=== PATIENT | female | born 1990 | race Caucasian/White ===

== ENCOUNTER → 2017-12-08 08:35 | Outpatient (CLI) | payer BC, SELFPAY ==
--- NOTE | 2017-12-08 | DI.US.S_ITS ---
PROCEDURE: US RENAL COMPLETE INDICATIONS: NEPHROLITHIASIS TECHNIQUE: Real-time scanning was performed of the kidneys and bladder, with image documentation. COMPARISON: [facility], [facility], 01/22/2017, 9:26. [facility], OB REEVALUATION, 12/12/2016, 8:37. [facility], [facility], 04/07/2017, 12:22. FINDINGS: Kidneys: Kidneys are normal in size. Right kidney measures 14.1 cm long; left kidney measures 12.8 cm long. Right renal cortical thickness is 1.6 cm; left renal cortical thickness is 1.5 cm. Renal cortical echotexture is normal. No hydronephrosis. There is a nonobstructing left-sided kidney stone is seen within the mid kidney that measures up to 9 mm. No suspicious solid mass lesions. Bladder: Pre-void bladder volume is 430 mL. Post-void residual is 25 mL. Pre-void images demonstrate no intraluminal masses or stones. On pre-void images, both ureteral jets are noted with color Doppler interrogation. (Of note, ureteral jets may not be detectable in up to 25% of cases due to insufficient differences in specific gravity between ureteral and bladder urine). Miscellaneous: No free pelvic fluid. IMPRESSION: Nonobstructing left-sided kidney stone, measuring 9 mm, which is no significantly changed from prior. Small postvoid residual (25 cc). Dictated by: Jozef Reynolds M.D. on 12/08/2017 at 8:55 Approved by: Jozef Reynolds M.D. on 12/08/2017 at 8:58
== END ==
PROVIDERS: Family Provider Family Medicine; PCP Family Medicine; Visit Provider Family Medicine
DX: N20.0 Calculus of kidney (principal)
CPT/HCPCS: 76770

== ENCOUNTER 2018-05-27 22:33 | Emergency (ER) | payer BC, SELFPAY ==
--- NOTE | 2018-05-27 22:48 | ED_ITS ---
HPI - General Adult General Chief complaint: Urogenital-Female Stated complaint: KIDNEY PAIN Time Seen by Provider: 05/27/18 22:47 Source: patient Mode of arrival: ambulatory Limitations: no limitations History of Present Illness HPI narrative: otherwise healthy 27-year-old female who was diagnosed with bilateral renal stones during an ultrasound during her . She delivered without any complications. Did have a follow-up with the urologist who ordered a CT scan which confirmed the bilateral renal stones. Neither of these studies were available for my evaluation. She states she has never passed a kidney stone before. She states that earlier today she started having sudden onset of left-sided flank pain and dysuria. She states that she felt like she had a urinary tract infection. Had urgency and frequency. She states that the pain became fairly intense. Took some ibuprofen. Had an episode of diarrhea and then afterwards felt much better. Has not had a return of the pain. No fevers. Dysuria has also seemed to improve. Related Data Home Medications Medication Instructions Recorded Confirmed norethindrone (contraceptive) 0.35 mg PO #0 05/10/17 [Deblitane] Previous Rx's Medication Instructions Recorded sulfamethoxazole-trimethoprim 1 tab PO BID #20 tab 05/10/17 Allergies Allergy/AdvReac Type Severity Reaction Status Date / Time hydrocodone [HYDROCODONE] Allergy Mild NAUSEA/VOMI Verified 05/27/18 22:49 TING Review of Systems Constitutional Denies fever(s) and Denies headache(s) ENT Ears, Nose, Mouth, and Throat: Denies headache(s) Cardiovascular Denies chest pain and Denies dyspnea Respiratory Denies dyspnea Gastrointestinal Gastrointestinal: Denies abdominal pain, Denies cramping, Reports diarrhea, Reports nausea and Denies vomiting Genitourinary Denies hematuria, Reports urinary frequency, Reports dysuria, Denies flank pain , Denies urinary incontinence, Reports urinary hesitancy, Reports urinary urgency and Denies vaginal discharge Musculoskeletal Denies myalgias and Denies arthralgias Integumentary/Breasts Denies rash Neurologic Denies headache(s) Hematologic/Lymphatic Comments: Not on anticoagulation PFSH Medical History Healthy adult (Acute) Surgical History No pertinent past surgical history (Acute) Social History Smoking Status: Never smoker Exam Initial Vital Signs Initial Vital Signs: Vital Signs Temperature 98.8 F 05/27/18 22:49 Pulse Rate 95 H 05/27/18 22:49 Respiratory Rate 15 05/27/18 22:49 Blood Pressure 127/85 05/27/18 22:49 Pulse Oximetry 97 05/27/18 22:49 Const General: cooperative, healthy appearing, comfortable, well developed, well groomed and No acute distress Orientation: alert, awake and oriented x3 HENMT Head: normal to inspection and normocephalic Resp Effort & Inspection: normal respiratory effort Cardio Rate: regular rate Skin Rashes: no rashes Neuro General: alert, awake and oriented x3 Cognition: normal cognition Extrem General: normal to inspection Other: no gross deformities Psych Appearance: grossly normal and well kempt Course Vital Signs - 8 hr 05/27/18 22:49 Temperature 98.8 F Pulse Rate 95 H Respiratory Rate 15 Blood Pressure 127/85 Pulse Oximetry 97 Medical Decision Making Lab Data Point of Care Testing Test Results Negative Urine Dip Bedside Urine Glucose Negative Bedside Urine Bilirubin - Negative Bedside Urine Ketone - Negative Urine Specific [place] 1.010 Bedside Urine Occult Blood +++ Bedside Urine pH 6.0 Bedside Urine Protein - Negative Bedside Urine Urobilinogen - Negative Bedside Urine Nitrite - Negative Bedside Urine Leukocytes - Negative Esterase Point of care testing: Point of Care Testing Test Results Negative Urine Dip Bedside Urine Glucose Negative Bedside Urine Bilirubin - Negative Bedside Urine Ketone - Negative Urine Specific [place] 1.010 Bedside Urine Occult Blood +++ Bedside Urine pH 6.0 Bedside Urine Protein - Negative Bedside Urine Urobilinogen - Negative Bedside Urine Nitrite - Negative Bedside Urine Leukocytes - Negative Esterase MDM Narrative Medical decision making narrative: patient with known kidney stones. test was negative. Urine shows no signs of infection. She did not require any pain medication here in the emergency department. I did inform her that it was most likely that she had a kidney stone that she has passed. Informed her that she would be fairly sore afterwards. Did inform her that she needed to contact her urologist to discuss this. She was given return precautions. Will hold on a CT scan of blood work today. She expressed understanding and agreement this plan. Discharge Plan Departure Patient Disposition: Home Clinical Impression: Renal colic Discharge Date/Time: 05/27/18 23:16 Interventions: ED Discharge Assessment Last Done: 05/27/18 23:16 Instructions: Kidney Stones -- Adult Activity Restrictions/Additional Instructions: there were no signs of an infection today on her urinalysis. I do suspect that you had a kidney stone but then passed it. I would recommend that you contact your urologist. Return to the emergency department for any fevers, inability to urinate, pain that is not controlled with your home pain regimen or any other concerning symptoms Prescriptions: No Action norethindrone (contraceptive) [Deblitane] 0.35 MG tablet 0.35 mg PO Qty: 0 RF: 0 sulfamethoxazole-trimethoprim 800 MG/160 MG tablet 1 tab PO BID Qty: 20 RF: 0
[2018-05-27 22:49] VITALS: BP 127/85; PULSE 95; RESP 15; TEMP 37.1; O2SAT 97; BMI 24.8
== END 2018-05-27 23:16 | disposition home or self-care (01) ==
PROVIDERS: Emergency Provider Emergency Medicine; Family Provider Family Medicine; PCP Family Medicine
DX: N23 Unspecified renal colic (principal)
CPT/HCPCS: 81003; 81025; 99282; 99283

== ENCOUNTER → 2019-05-18 07:12 | Outpatient (CLI) | payer BC, SELFPAY ==
--- NOTE | 2019-05-18 | DI.US.S_ITS ---
PROCEDURE: US OB <= 14 WEEKS FETUS INDICATIONS: DATES OUTSIDE/PRIOR DATING DATA: Last menstrual period (LMP): 03/25/19. LMP-based estimated date of delivery (PATRICIA): 12/30/19. First dating scan (date and location): 05/18/19. Estimated date of delivery (PATRICIA) from first dating scan: 01/02/20. TECHNIQUE: Real-time scanning was performed of the fetus and maternal pelvic organs, with image documentation. Endovaginal scanning was also performed to better visualize the fetus and maternal ovaries. COMPARISON: None. FINDINGS: Embryo: [place]-rump length measures 12 mm corresponding to 7 weeks 2 days. Heart rate measures 147 beats per minute. Measurement variability in dating: +/- 4 weeks by LMP, +/- 7 days by mean sac diameter (use before 6 weeks gestation if crown-rump length not able to be measured), +/- 5 days by crown-rump length (up to 8 weeks 6 days gestation), +/- 7 days by crown-rump length (up to 13 weeks 6 days gestation). Maternal organs: Probable complex right corpus luteal cyst measuring 19 mm.. Limited images through the kidneys demonstrate no hydronephrosis. IMPRESSION: 1. 7 week 2 day single living IUP. 2. Probable complex right corpus luteal cyst. Recommend short-term followup pelvic ultrasound to assess for resolution. Dictated by: Roney BARILLAS Interpreted: Blanche Connolly MD on 05/18/2019 at 16:55 Approved by: Blanche Connolly MD, PhD on 05/18/2019 at 17:36
== END ==
PROVIDERS: Family Provider Family Medicine; PCP Family Medicine; Visit Provider Family Medicine
DX: Z36.87 Encounter for antenatal screening for uncertain dates (principal); Z3A.01 Less than 8 weeks gestation of pregnancy
CPT/HCPCS: 76801; 76817

== ENCOUNTER → 2019-08-12 09:10 | Outpatient (CLI) | payer BC, SELFPAY ==
--- NOTE | 2019-08-12 | DI.US.S_ITS ---
PROCEDURE: US OB >= 14 WEEKS FETUS INDICATIONS: 20 WEEK ANATOMICAL SURVEY OUTSIDE/PRIOR DATING DATA: Last menstrual period (LMP): 03/25/19. LMP-based estimated date of delivery (PATRICIA): 12/30/19. First dating scan (date and location): 05/18/19. Estimated date of delivery (PATRICIA) from first dating scan: 01/02/20. TECHNIQUE: Real-time scanning was performed of the fetus, with image documentation and biometric measurements. COMPARISON: [facility], OB <= 14 WEEKS FETUS, 05/18/2019, 7:25. FINDINGS: General: A single living intrauterine gestation is present. Presentation: Vertex. Placenta: Placental position is posterior, without previa. Amniotic fluid index: 1020 cm, normal range is 5-24 cm. heart rate: 135 beats per minute. Maternal cervical canal: 3.9 cm long. Normal lower limit is 2.5 cm. biometrics: Biparietal diameter: 20 weeks 1 day Head circumference: 20 weeks 3 days Abdominal circumference: 20 weeks 2 days Femur length: 19 weeks 2 days Estimated gestational age from initial scan: 19 weeks 4 days Composite gestational age from present scan: 20 weeks Estimated weight and percentile: 317 g; 62nd percentile Measurement variability for biometric dating: +/- 7 days from 14 weeks to 15 weeks 6 days gestation, +/- 10 days from 16 weeks to 21 weeks 6 days gestation, +/- 2 weeks from 22 weeks to 27 weeks 6 days gestation, +/- 3 weeks for 28 weeks gestation or later. weight reference: 4500 g or EFW >90/95% is considered macrosomia or large for gestational age. EFW <10% is small for gestational age. EFW 5% or less is considered intra-uterine growth restriction. Anatomic survey: Neuro: Ventricles are non-dilated at less than 10 mm. Cisterna magna is normal at 3-11 mm. Cerebellum is normal in size and morphology. Nuchal skin fold: Normal at less than 6 mm between 14-21 weeks gestational age. Face: Nose and lips, facial profile are normal. Spine: No evidence for spina bifida. Heart: 4-chambered heart is present, with normal ventricular outflow tracts. Diaphragm: Diaphragm is intact. Stomach: Left-sided stomach is present. Kidneys: No hydronephrosis. Normal is less than 5 mm in 2nd trimester, less than 7 mm in 3rd trimester. Cord: 2-vessel cord has orthotopic insertion. Bladder: Normal in size. Extremities: All 4 extremities identified. IMPRESSION: 1. Single living IUP redemonstrated and interval growth is normal. 2. Normal anatomic survey. 3. Two-vessel cord noted. Dictated by: Roney Holland [facility] Interpreted: Daryn Armas MD on 08/12/2019 at 10:40 Approved by: Daryn Armas M.D. on 08/12/2019 at 13:58
== END ==
PROVIDERS: Family Provider Family Medicine; PCP Family Medicine; Referring Provider Family Medicine; Visit Provider Family Medicine
DX: Z36.89 Encounter for other specified antenatal screening (principal); Z3A.20 20 weeks gestation of pregnancy
CPT/HCPCS: 76811

== ENCOUNTER → 2019-11-16 07:52 | Outpatient (CLI) | payer BC, SELFPAY ==
--- NOTE | 2019-11-16 | DI.US.S_ITS ---
PROCEDURE: US OB FOLLOW UP INDICATIONS: 2 VESSEL CORD OUTSIDE/PRIOR DATING DATA: Last menstrual period (LMP): 03/25/19. LMP-based estimated date of delivery (PATRICIA): 12/30/19. First dating scan (date and location): 04/2619. Estimated date of delivery (PATRICIA) from first dating scan: 01/02/20. TECHNIQUE: Real-time scanning was performed of the fetus, with image documentation and biometric measurements. Endovaginal scanning: Not performed COMPARISON: [facility], OB >= 14 WEEKS FETUS, 08/12/2019, 9:18. FINDINGS: General: A single living intrauterine gestation is present. Presentation: Vertex. Placenta: Placental position is left and fundal, without previa. Amniotic fluid index: 12.7 cm, normal range is 5-24 cm. heart rate: 144 beats per minute. Maternal cervical canal: 3.9 cm long. Normal lower limit is 2.5 cm. biometrics: Biparietal diameter: 8.6 cm, 34 weeks, 4 days Head circumference: 30.6 cm, 34 weeks, one day Abdominal circumference: 30.7 cm, 34 weeks, 5 days Femur length: 6.2 cm, 32 weeks, zero days Estimated gestational age from initial scan: 33 weeks, 2 days. Composite gestational age from present scan: 33 weeks, 6 days Estimated weight and percentile: 2302 g, 61st percentile Measurement variability for biometric dating: +/- 7 days from 14 weeks to 15 weeks 6 days gestation, +/- 10 days from 16 weeks to 21 weeks 6 days gestation, +/- 2 weeks from 22 weeks to 27 weeks 6 days gestation, +/- 3 weeks for 28 weeks gestation or later. weight reference: 4500 g or EFW >90/95% is considered macrosomia or large for gestational age. EFW <10% is small for gestational age. EFW 5% or less is considered intra-uterine growth restriction. IMPRESSION: 1. Single live intrauterine with appropriate growth since the prior study. Dictated by: Indira Pfeiffer M.D. on 11/16/2019 at 9:13 Approved by: Indira Pfeiffer M.D. on 11/16/2019 at 9:16
== END ==
PROVIDERS: Family Provider Family Medicine; PCP Family Medicine; Referring Provider Family Medicine; Visit Provider Family Medicine
DX: Z36.2 Encounter for other antenatal screening follow-up (principal); Z3A.33 33 weeks gestation of pregnancy
CPT/HCPCS: 76816

== ENCOUNTER 2019-11-16 08:36 | Outpatient (CLI) | payer BC, SELFPAY | END 2019-11-16 09:28 | disposition home or self-care (01) | LOC: OB 11-17 12:29 | PROVIDERS: Family Provider Family Medicine; PCP Family Medicine; Referring Provider Family Medicine; Visit Provider Family Medicine | DX: O35.0XX0 Maternal care for (suspected) central nervous system malformation in fetus, not applicable or unspecified (principal); Z3A.33 33 weeks gestation of pregnancy | CPT/HCPCS: 59025; 76816; G0378; G0379 ==

== ENCOUNTER 2019-11-26 08:22 | Outpatient (CLI) | payer BC, SELFPAY | END 2019-11-26 09:00 | disposition home or self-care (01) | LOC: LABOR 09:00 → OB 11-30 07:38 | PROVIDERS: Family Provider Family Medicine; PCP Family Medicine; Referring Provider Family Medicine; Visit Provider Family Medicine | DX: Z34.83 Encounter for supervision of other normal pregnancy, third trimester (principal); Z3A.35 35 weeks gestation of pregnancy | CPT/HCPCS: 59025; G0378; G0379 ==

== ENCOUNTER 2019-12-02 08:23 | Outpatient (CLI) | payer BC, SELFPAY | END 2019-12-02 10:00 | disposition home or self-care (01) | LOC: LABOR 09:58 → OB 14:43 | PROVIDERS: Family Provider Family Medicine; PCP Family Medicine; Referring Provider Family Medicine; Visit Provider Family Medicine | DX: Z34.83 Encounter for supervision of other normal pregnancy, third trimester (principal); Z3A.36 36 weeks gestation of pregnancy | CPT/HCPCS: 59025; 87081; G0378; G0379 ==

== ENCOUNTER → 2019-12-09 07:37 | Outpatient (CLI) | payer BC, SELFPAY ==
--- NOTE | 2019-12-09 | DI.US.S_ITS ---
PROCEDURE: US OB LIMITED INDICATIONS: 2 VESSEL CORD OUTSIDE/PRIOR DATING DATA: Last menstrual period (LMP): 04/21/19. LMP-based estimated date of delivery (PATRICIA): 12/30/19. First dating scan (date and location): 05/18/19. Estimated date of delivery (PATRICIA) from first dating scan: 01/02/20. TECHNIQUE: Real-time scanning was performed of the fetus, with image documentation and biometric measurements. Endovaginal scanning: No COMPARISON: [facility] OB FOLLOW UP, 11/16/2019, 8:17. [facility] OB >= 14 WEEKS FETUS, 08/12/2019, 9:18. [facility] OB <= 14 WEEKS FETUS, 05/18/2019, 7:25. FINDINGS: General: A single living intrauterine gestation is present. Presentation: Vertex. Placenta: Placental position is posterior fundal, without previa. Amniotic fluid index: 14 cm, normal range is 5-24 cm. heart rate: 132 beats per minute. Maternal cervical canal: 3.9 cm long. Normal lower limit is 2.5 cm. biometrics: Biparietal diameter: 37 weeks 3 days Head circumference: 36 weeks 3 days Abdominal circumference: 35 weeks 1 day Femur length: 35 weeks 3 days Estimated gestational age from initial scan: 36 weeks 4 days Composite gestational age from present scan: 36 weeks 1 day Estimated weight and percentile: 2717 g; 20 percentile Measurement variability for biometric dating: +/- 7 days from 14 weeks to 15 weeks 6 days gestation, +/- 10 days from 16 weeks to 21 weeks 6 days gestation, +/- 2 weeks from 22 weeks to 27 weeks 6 days gestation, +/- 3 weeks for 28 weeks gestation or later. weight reference: 4500 g or EFW >90/95% is considered macrosomia or large for gestational age. EFW <10% is small for gestational age. EFW 5% or less is considered intra-uterine growth restriction. Other: 2 vessel cord. IMPRESSION: 1. Single living IUP redemonstrated and interval growth is normal. 2. Two-vessel cord again noted. Dictated by: Roney Holland [facility] Interpreted: Blanche Connolly MD on 12/09/2019 at 8:56 Approved by: Blanche Connolly MD, PhD on 12/09/2019 at 13:38
== END ==
PROVIDERS: Family Provider Family Medicine; PCP Family Medicine; Referring Provider Family Medicine; Visit Provider Family Medicine
DX: Z36.89 Encounter for other specified antenatal screening (principal); Z3A.36 36 weeks gestation of pregnancy
CPT/HCPCS: 76815

== ENCOUNTER 2019-12-09 07:53 | Outpatient (CLI) | payer BC, SELFPAY | END 2019-12-09 09:00 | disposition home or self-care (01) | LOC: LABOR 08:54 → OB 11:45 | PROVIDERS: Family Provider Family Medicine; PCP Family Medicine; Referring Provider Family Medicine; Visit Provider Family Medicine | DX: Z34.83 Encounter for supervision of other normal pregnancy, third trimester (principal); Z3A.37 37 weeks gestation of pregnancy; Z36.89 Encounter for other specified antenatal screening | CPT/HCPCS: 59025; 76815; G0378; G0379 ==

== ENCOUNTER 2019-12-16 08:35 | Outpatient (CLI) | payer BC, SELFPAY | END 2019-12-16 09:10 | disposition home or self-care (01) | LOC: OB 12-17 10:53 | PROVIDERS: Family Provider Family Medicine; PCP Family Medicine; Referring Provider Family Medicine; Visit Provider Family Medicine | DX: O35.8XX0 Maternal care for other (suspected) fetal abnormality and damage, not applicable or unspecified (principal); Z3A.38 38 weeks gestation of pregnancy | CPT/HCPCS: 59025; G0378; G0379 ==

== ENCOUNTER → 2019-12-20 10:46 | Outpatient (CLI) | payer BC, SELFPAY ==
[2019-12-21 08:39] LABS: COVID19 Sendout Not Detected (Not Detect)
== END ==
PROVIDERS: Family Provider Family Medicine; PCP Family Medicine; Visit Provider Physician Assistant
DX: Z01.812 Encounter for preprocedural laboratory examination (principal)
CPT/HCPCS: 87635

== ENCOUNTER 2019-12-22 07:39 | Inpatient (IN) | payer BC, SELFPAY ==
[2019-12-22] MEDS: LACTATED RINGERS 1,000 ML 100 ML IV ×3 (07:05→09:36)
[2019-12-22 07:46] VITALS: BP 128/76
[2019-12-22 07:58] LABS: Add Manual Diff / Slide Review NO; Basophils Absolute Auto 100 /uL (0-100); Basophils Percent Auto 0.8 % (0-2); Eosinophils Absolute Auto 100 /uL (0-450); Eosinophils Percent Auto 0.6 % (2-4); Hematocrit 35.5 % (36-46); Hemoglobin 12.2 g/dL (12.0-16.0); Lymphocytes Absolute Auto 2100 /uL (1100-4500); Lymphocytes Percent Auto 17.3 % (25-40); Mean Corpuscular HGB Conc 34.5 % (30-36); Mean Corpuscular Hemoglobin 32.1 PG (26-34); Mean Corpuscular Volume 93.2 fL (80-100); Monocytes Absolute Auto 1000 /uL (0-900); Monocytes Percent Auto 8.3 % (3-14); Neutrophils Absolute Auto 9000 /uL (1500-7000); Platelet Count 250 X10^3/uL (150-400); Red Blood Cell Count 3.81 X10^6/uL (4.0-5.2); Red Cell Distribution Width 12.8 % (11.6-14.8); White Blood Cell Count 12.4 X10^3/uL (4.5-11.0)
--- NOTE | 2019-12-22 08:37 | P.HPOB_ITS ---
OB HPI Date/Time Date of admission: 12/22/19 Date Patient Seen: 12/22/19 Time Patient Seen: 08:37 History of Present Condition Chief complaint: 268[address] : 3 Para: 1 Estimated Date of Delivery: 12/30/19 Estimated Gestational Age (weeks): 39 Narrative: Malissa Doss is a 29 year old female with previous keith nahomy-section who is here for repeat section. No complications during . Should good care. Will establish dates no other issues or problems. Indications Operative indications ( section): previous uterine surgery Other reason(s) for admission: Discern section History of Present care: good care Dating criteria: LMP confirmed by 1st trimester US Obstetrical complications: none Preadmission Labs Blood type: A (+) positive -: Antibody screen: negative, Cystic fibrosis screen: unknown, GBS status: negative, HBsAG: negative, HIV: negative, HSV 1: negative, HSV 2: negative and RPR/VDLR: negative -: Chlamydia screen: not detected and Gonorrhea screen: not detected -: Rubella: immune and Varicella: immune HCT: 36 HCAB: negative PAP: Normal Sequential screen: Normal 1 hr GTT: 79 3 hr GTT: 1 hr Prior (ies) History: One 1 2010 9 week SAB 04/10/2017 [id number] with spinal for failure to progress female 9 lb 5 oz Evaluation Evaluation Laboratory results: Laboratory Tests 12/22/19 07:00 WBC 12.4 H RBC 3.81 L Hgb 12.2 Hct 35.5 L MCV 93.2 MCH 32.1 MCHC 34.5 RDW 12.8 Plt Count 250 Neut % (Auto) 73.0 Lymph % (Auto) 17.3 L [place] % (Auto) 8.3 Eos % (Auto) 0.6 L Baso % (Auto) 0.8 Neut # (Auto) 9000 H Lymph # (Auto) 2100 [place] # (Auto) 1000 H Eos # (Auto) 100 Baso # (Auto) 100 PFSH Medical History Healthy adult (Acute) Surgical History No pertinent past surgical history (Acute) Social History Smoking Status: Never smoker Meds Home Medications and Allergies Allergies Allergy/AdvReac Type Severity Reaction Status Date / Time hydrocodone [HYDROCODONE] Allergy Mild NAUSEA/VOMI Verified 12/20/19 16:33 TING acetaminophen [From NyQuil] AdvReac Insomnia Verified 12/22/19 07:52 dextromethorphan AdvReac Insomnia Verified 12/22/19 07:52 [From NyQuil] doxylamine [From NyQuil] AdvReac Insomnia Verified 12/22/19 07:52 pseudoephedrine [From NyQuil] AdvReac Insomnia Verified 12/22/19 07:52 Review of Systems Review of Systems ROS: Yes All systems reviewed with the patient and are negative except as otherwise documented Exam Vital Signs (past 8 hours): - 12/22/19 07:46 Blood Pressure 128/76 Narrative Exam Narrative: Alert female no acute distress mildly anxious in appearance Lungs are clear. Heart regular rate and rhythm. Abdomen is gravid estimated weight 7 and half to 8 lb. Vertex. Extremities without edema no tenderness Objective Labs Result Diagrams: 12/22/19 07:00 Labs: Laboratory Results - last 24 hr 12/22/19 07:00 WBC 12.4 H RBC 3.81 L Hgb 12.2 Hct 35.5 L MCV 93.2 MCH 32.1 MCHC 34.5 RDW 12.8 Plt Count 250 Neut % (Auto) 73.0 Lymph % (Auto) 17.3 L [place] % (Auto) 8.3 Eos % (Auto) 0.6 L Baso % (Auto) 0.8 Neut # (Auto) 9000 H Lymph # (Auto) 2100 [place] # (Auto) 1000 H Eos # (Auto) 100 Baso # (Auto) 100 Assessment and Plan Assessment and Plan Assessment and Plan narrative: Repeat section routine care
[2019-12-22] MEDS: CEFAZOLIN 2 GM/100 ML FROZ.PIGGY IV (08:45)
--- NOTE | 2019-12-22 09:18 | SUR.OPER ---
Supine on Padded OR bed, head on pillow, safety belt at thigh, arms secured on padded arm boards at <90 degrees abduction. Bump under right buttock. Legs uncrossed with pillow under knees, gel pad to heels, tape over blanket to lower legs.
--- NOTE | 2019-12-22 09:37 | SUR.OPER ---
FHR 158 TOB at 09:20 am alive boy Cord blood and placenta are given to OB nurse
[2019-12-22 10:14] VITALS: BP 116/56; PULSE 71; RESP 14; TEMP 36.7; O2SAT 98
[2019-12-22 10:19] VITALS: BP 102/45; PULSE 61; RESP 14; O2SAT 98
--- NOTE | 2019-12-22 10:23 | P.OP_ITS ---
Operative Date/Time/Diagnoses Date of procedure: 12/22/19 Time of procedure: 10:23 Pre-op diagnosis: Previous section 39 week intrauterine Post-op diagnosis: same Procedure & Clinicians Procedure: Secondary low-transverse section Same procedure as scheduled: Yes Indications: Previous section Surgeon: Jean Marie Irizarry [employer] Deputy Sheriff: Lynnette Segal Click Yes if Unassisted: No Anesthesia Type: Spinal Operative Notes Findings: Viable male infant weighing 7 lb 2 oz, normal pelvic organs. Apgars 8 and 9 Closure Type: primary Specimen(s): none sent Applied: catheter Estimated Blood Loss (mL): 300 Blood products transfused: none Procedure in detail: Patient was minute in the labor and delivery rediscuss consent. Consent previously been sign. No other complications no questions. She was taken operative theatre after anesthesia evaluated her. She was placed in a sitting position on the operative table and spinal was placed by anesthesia with excellent results. She was placed in the esquivel supine position. Prepped and draped in usual manner. Pfannenstiel incision was then done through previous scar. Down to subcutaneous tissue. Moderate amount of scar in the subcutaneous tissue required sharp dissection. The midline was then scored with Adam and fascia was identified. Fascia was elevated and extended with curved scissors. Dolly is within used to elevate the fascia. Blunt dissection off the muscle wall and sharp dissection in the midline. This was repeated inferiorly without complications. Scarring was pretty significant between muscle layer. Blunt dissection was used to established where the perineum was and then sharp dissection was used with covered finger until with allowed enough space between the muscle layer to allow fingers to be placed an point dissection was then used to extend the incision. Perineum was then identified and entered bluntly. Bladder blade was then placed. Bladder flap was then incised and developed without complications. Bladder blade was then placed into the bladder flap. Low-transverse incision was then incised until clear fluid was noted. Then extended laterally bluntly. Bladder blade was then removed. Baby was then delivered without complications on an crying after head was delivered. Bulb suctioning was then done to mouth and nasal cavity. Baby delivered easily after that period was cord was clamped period handed off to waiting respiratory therapist and. Nursery nurse. Cord bloods were obtained. Placenta was then manually removed. There was an area of clot load and was continued to be applied with was easily removed with wet lap sponge. Second what laps parents was then used to verify products of conception were removed. Cortisol uterine incision was then grasped with ring forceps along with inferior edge of the uterus. Ring forceps were then passed into the uterine cavity through the cervix and vagina. These were handed off the operative theater incision was closed with running 0 chromic locked. Second imbricating suture was then ran with 0 chromic non long period incision was dry. Irrigation was then done to abdominal contents with saline and removed. Re-evaluated wound was dry. Bladder flap was closed with 3-0 running Vicryl. Perineum was closed with running 3-0 up. Muscles were approximated with 3 2-0 Vicryl interrupted suture. Fascia was then closed with running 1 Vicryl. Irrigation was done of the subcutaneous tissue. 330 Vicryl interrupted sutures used to approximate the wound. Wound was closed with running subcuticular 4-0 Vicryl. Steri-Strips were applied. As patient did well. EBL 300 cc. Mother and were in stable condition. Complications: none Post-operative Condition: stable Disposition: Acute Care Plan for aftercare: Transfer to labor and delivery
[2019-12-22 10:24] VITALS: BP 113/74; PULSE 81; RESP 20; O2SAT 96
[2019-12-22 10:29] VITALS: BP 100/43; PULSE 59; RESP 17; O2SAT 98
[2019-12-22] MEDS: ONDANSETRON 4 MG/2 ML INJ IV ×2 (10:31→15:51)
[2019-12-22 10:59] VITALS: BP 100/43; PULSE 59; RESP 17; TEMP 36.7
[2019-12-22] MEDS: DEXTROSE 5%-LACTATED RINGERS 1,000 ML 125 ML IV ×2 (11:05→18:39)
[2019-12-22] MEDS: METOCLOPRAMIDE 10 MG/2 ML INJ IV (12:29)
[2019-12-22] MEDS: KETOROLAC 30 MG/ML VIAL IV ×2 (15:50→21:56)
[2019-12-23] MEDS: KETOROLAC 30 MG/ML VIAL IV (04:14)
[2019-12-23 07:08] LABS: Hematocrit 32.5 % (36-46); Hemoglobin 11.3 g/dL (12.0-16.0)
[2019-12-23] MEDS: DOCUSATE 250 MG CAPSULE PO (09:00)
[2019-12-23] MEDS: LANOLIN OINT 7 GM 1 APPLIC TOP (09:00)
--- NOTE | 2019-12-23 14:17 | P.DS_ITS ---
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 Routine Comment: Discharge provider: Lynnette Segal MD Summary Time Spent with Patient Time attestation: Total time spent providing and/or coordinating discharge services: 30 minutes Objective Labs Result Diagrams: 12/23/19 06:44 Labs: Laboratory Results - last 24 hr 12/23/19 06:44 Hgb 11.3 L Hct 32.5 L Exam Vital Signs (past 8 hours): Oxygen Delivery Method Room Air Narrative Exam Narrative: Alert oriented x3, vital signs stable Chest: Clear to auscultation without wheezes rhonchi or crackles Cor: Regular rate and rhythm without any murmur Abdomen: Positive bowel sounds, soft, nontender, incision clean and dry., uterus well below umbilicus Extremities: Trace nonpitting edema, DTRs intact Discharge Plan Discharge Plan Patient Disposition: Home Discharge orders & Medications Prescriptions: New ibuprofen 600 mg Tablet 600 mg PO Q6HR PRN (Reason: Fever/Mild Pain (1-3)) Qty: 60 RF: 1 docusate sodium 250 mg Capsule 250 mg PO DAILY Qty: 30 RF: 0 Follow up/Referrals: Lynnette Segal MD [Primary Care Provider] - Discharge Data Primary Care Provider: Lynnette Segal
[2019-12-23 15:24] VITALS: BP 100/43; PULSE 59; RESP 17; TEMP 36.7
== END 2019-12-23 16:30 | disposition home or self-care (01) | DRG 788 ==
PROVIDERS: Admitting Provider Family Medicine; Family Provider Family Medicine; PCP Family Medicine; Referring Provider Family Medicine; Visit Provider Family Medicine
PROC: 10D00Z1 Extraction of Products of Conception, Low, Open Approach (ICD-10-PCS; CPT 59514; principal; 2019-12-22 08:45)
DX: O34.211 Maternal care for low transverse scar from previous cesarean delivery (principal); Z3A.39 39 weeks gestation of pregnancy; Z37.0 Single live birth
CPT/HCPCS: 36415; 59050; 85014; 85018; 85025; 86850; 86900; 86901; J0690; J1885; J2274; J2405; J2590; J2765; J3010; J7121

== ENCOUNTER → 2021-08-17 09:32 | Outpatient (CLI) | payer BC, SELFPAY ==
--- NOTE | 2021-08-17 | DI.US.S_ITS ---
PROCEDURE: US PELVIC COMPLETE INDICATIONS: EXCESSIVE AND FREQUENT MENSTRUATION TECHNIQUE: Real-time scanning was performed of the pelvic organs, with image documentation. Additional endovaginal scanning was necessary due to incomplete visualization of the adnexal and endometrial structures by transabdominal scanning. COMPARISON: None. FINDINGS: Uterus: Uterus is retroverted and normal in size at 6.1 x 5.0 x 7.0 cm. The myometrium is homogeneous. The endometrium measures 5.9 mm combined thickness. Ovaries: The right ovary measures 2.2 x 1.1 x 1.0 cm. The left ovary measures 3.3 x 1.9 x 1.4 cm. The ovaries have a normal sonographic appearance. Less than 12 follicles can be seen in each ovary. No adnexal masses are seen. There is a dominant ovarian follicle in the right ovary measures 1.5 x 1.0 x 0.9 cm. A collapsing cyst is seen in left ovary measures 1.9 x 1.3 x 0.8 cm Other: No pathologic free abdominal or pelvic fluid. IMPRESSION: 1. No ultrasound findings to explain accessed and frequent menstruation. 2. A 1.9 x 1.3 x 0.8 cm collapsing cyst in the left ovary. We strive to produce accurate, complete, and clear reports of imaging services. To assist us in improving patient care, this report was composed using standard report templates and voice recognition software. Therefore, it may contain abnormal punctuation, insertions and/or omissions. Occasional wrong-word or sound-alike substitutions may occur. Though we review the report and make efforts to correct it, we do recommend that the report be read carefully in proper context to recognize any text inaccuracies. Dictated by: Bell Deutsch M.D. on 08/17/2021 at 13:39 Approved by: Bell Deutsch M.D. on 08/17/2021 at 13:43
== END ==
PROVIDERS: Family Provider Family Medicine; PCP Family Medicine; Referring Provider Family Medicine; Visit Provider Family Medicine
DX: N92.1 Excessive and frequent menstruation with irregular cycle (principal); N83.202 Unspecified ovarian cyst, left side
CPT/HCPCS: 76830; 76856

== ENCOUNTER → 2021-12-27 10:17 | Outpatient (CLI) | payer BC, SELFPAY ==
--- NOTE | 2021-12-27 | DI.US.S_ITS ---
PROCEDURE: US PELVIC COMPLETE INDICATIONS: FOLLOW UP HEMORRHAGIC CYST TECHNIQUE: Real-time scanning was performed of the pelvic organs, with image documentation. Additional endovaginal scanning was necessary due to incomplete visualization of the adnexal and endometrial structures by transabdominal scanning. COMPARISON: [facility], US, US PELVIC COMPLETE, 08/17/2021, 9:43. FINDINGS: Uterus: Uterus is retroverted and normal in size at 7.1 x 4.6 x 5.7 cm. The myometrium is homogeneous. The endometrium measures 7.1 mm combined thickness. Ovaries: The right ovary measures 4.9 x 3.1 x 4.4 cm. There is a simple right cyst which measures 4.4 x 3.2 x 3.4 cm. Previously, a simple right cyst measured 1.5 x 1.0 x 0.9 cm. The left ovary measures 2.6 x 1.4 x 1.9 cm there is a 1.9 x 1.0 x 1.0 cm left ovarian follicular cyst. The ovaries have a normal sonographic appearance. Less than 12 follicles can be seen in each ovary. No adnexal masses are seen. Other: No pathologic free abdominal or pelvic fluid. IMPRESSION: Simple right ovarian cyst which is within physiologic limits in a premenopausal female. Left follicular cyst is also noted. No sonographic abnormalities. We strive to produce accurate, complete, and clear reports of imaging services. To assist us in improving patient care, this report was composed using standard report templates and voice recognition software. Therefore, it may contain abnormal punctuation, insertions and/or omissions. Occasional wrong-word or sound-alike substitutions may occur. Though we review the report and make efforts to correct it, we do recommend that the report be read carefully in proper context to recognize any text inaccuracies. Dictated by: Patience Pinzon M.D. on 12/27/2021 at 12:11 Approved by: Patience Pinzon M.D. on 12/27/2021 at 12:13
== END ==
PROVIDERS: Family Provider Family Medicine; PCP Family Medicine; Referring Provider Family Medicine; Visit Provider Family Medicine
DX: N83.291 Other ovarian cyst, right side; N83.02 Follicular cyst of left ovary
CPT/HCPCS: 76830; 76856

== ENCOUNTER → 2022-03-01 09:05 | Outpatient (CLI) | payer BC, SELFPAY ==
--- NOTE | 2022-03-01 09:06 | DI.US.S_ITS ---
PROCEDURE: US PELVIC COMPLETE INDICATIONS: OVARIAN CYST TECHNIQUE: Real-time scanning was performed of the pelvic organs, with image documentation. Additional endovaginal scanning was necessary due to incomplete visualization of the adnexal and endometrial structures by transabdominal scanning. COMPARISON: [facility], , US PELVIC COMPLETE, 12/27/2021, 10:35. FINDINGS: Uterus: Uterus is retroverted and normal in size at 7.5 x 4.3 x 7.3 cm. The myometrium is homogeneous. The endometrium measures 7 mm combined thickness. Ovaries: The right ovary measures 2.6 x 0.9 x 1.4 cm, with a calculated ovarian volume of 1.7 cc. Previously seen simple right ovarian cyst is no longer visualized. The left ovary measures 4.7 x 3.4 x 5.0 cm, with a calculated ovarian volume of 41.5 cc. There is a new 4.5 x 3.3 x 3.8 cm simple left ovarian cyst. Otherwise, the ovaries have a normal sonographic appearance. Less than 12 follicles can be seen in each ovary. No adnexal masses are seen. Other: No pathologic free abdominal or pelvic fluid. IMPRESSION: Pelvis without acute sonographic abnormalities. Interval resolution of previously seen simple right ovarian cyst. New simple left ovarian cyst measuring 4.5 cm. We strive to produce accurate, complete, and clear reports of imaging services. To assist us in improving patient care, this report was composed using standard report templates and voice recognition software. Therefore, it may contain abnormal punctuation, insertions and/or omissions. Occasional wrong-word or sound-alike substitutions may occur. Though we review the report and make efforts to correct it, we do recommend that the report be read carefully in proper context to recognize any text inaccuracies. Dictated by: Quintin Wen M.D. on 03/01/2022 at 11:57 Approved by: Quintin Wen M.D. on 03/01/2022 at 12:00
== END ==
PROVIDERS: Family Provider Family Medicine; PCP Family Medicine; Referring Provider Obstetrics & Gynecology; Visit Provider Obstetrics & Gynecology
DX: N83.292 Other ovarian cyst, left side (principal)
CPT/HCPCS: 76830; 76856; 93976

== ENCOUNTER → 2022-04-16 10:47 | Outpatient (CLI) | payer BC, SELFPAY ==
[2022-04-16 15:39] LABS: Hemoglobin A1C% w Est Avg Glu 5.5 % (4.0-6.0)
[2022-04-16 16:29] LABS: Prolactin 7.8 ng/mL (3.0-18.6)
[2022-04-25 04:48] LABS: Percent Free Testosterone 2.64 % (0.50-2.80); Testosterone Free 0.43 ng/dL (0.10-0.85); Testosterone Total 16.3 ng/dL (10.0-55.0)
== END ==
PROVIDERS: Family Provider Family Medicine; PCP Family Medicine; Referring Provider Obstetrics & Gynecology; Visit Provider Obstetrics & Gynecology
DX: N83.202 Unspecified ovarian cyst, left side (principal); N91.5 Oligomenorrhea, unspecified; L68.9 Hypertrichosis, unspecified
CPT/HCPCS: 36415; 82627; 83036; 84146; 84402; 84403

== ENCOUNTER → 2022-04-16 16:19 | Outpatient (CLI) | payer BC, SELFPAY ==
--- NOTE | 2022-04-16 16:36 | DI.US.S_ITS ---
PROCEDURE: US PELVIC COMPLETE INDICATIONS: re-check left ovarian cyst TECHNIQUE: Real-time scanning was performed of the pelvic organs, with image documentation. Additional endovaginal scanning was necessary due to incomplete visualization of the adnexal and endometrial structures by transabdominal scanning. COMPARISON: [facility], US, US PELVIC COMPLETE, 03/01/2022, 9:13. FINDINGS: Uterus: Uterus is retroverted and normal in size at 6.6 x 3.1 x 5.1 cm. The myometrium is homogeneous. The endometrium measures 3 mm combined thickness. No focal intrauterine abnormality seen. Ovaries: The right ovary measures 2.6 x 1.0 x 0.8 cm, with a calculated ovarian volume of 1.1 cc. The left ovary measures 2.9 x 1.5 x 1.2 cm, with a calculated ovarian volume of 2.8 cc. The ovaries have a normal sonographic appearance. Less than 12 follicles can be seen in each ovary. No adnexal masses are seen. Previously seen simple left ovarian cyst is smaller but appears slightly more hyperechoic. This may represent some internal debris. No suspicious vascularity within this lesion. It measures 1.9 x 1.0 x 0.7 cm versus 4.1 x 3.5 x 3.8 cm. Other: No pathologic free abdominal or pelvic fluid. Large amount of peristalsing bowel noted in the lower abdomen/pelvis. IMPRESSION: Pelvic ultrasound without acute sonographic abnormalities. Interval decrease in size of previously described simple left ovarian cyst measuring up to 1.9 cm today versus 4.1 cm previously. There is mild interval increase in echogenicity within this cyst which may be related to presence of internal debris. No suspicious vascularity. We strive to produce accurate, complete, and clear reports of imaging services. To assist us in improving patient care, this report was composed using standard report templates and voice recognition software. Therefore, it may contain abnormal punctuation, insertions and/or omissions. Occasional wrong-word or sound-alike substitutions may occur. Though we review the report and make efforts to correct it, we do recommend that the report be read carefully in proper context to recognize any text inaccuracies. Dictated by: Quintin Wen M.D. on 04/17/2022 at 9:35 Approved by: Quintin Wen M.D. on 04/17/2022 at 9:42
== END ==
PROVIDERS: Family Provider Family Medicine; PCP Family Medicine; Referring Provider Obstetrics & Gynecology; Visit Provider Obstetrics & Gynecology
DX: N83.202 Unspecified ovarian cyst, left side (principal); N91.5 Oligomenorrhea, unspecified; L68.9 Hypertrichosis, unspecified
CPT/HCPCS: 36415; 76830; 76856; 82627; 83036; 84146; 84402; 84403

== ENCOUNTER → 2022-10-01 16:53 | Outpatient (CLI) | payer BC, SELFPAY ==
[2022-10-01 17:59] LABS: Add Manual Diff / Slide Review NO; Basophils Absolute Auto 100 /uL (0-100); Basophils Percent Auto 0.6 % (0-2); Eosinophils Absolute Auto 100 /uL (0-450); Hematocrit 34.5 % (36-46); Hemoglobin 11.8 g/dL (12.0-16.0); Lymphocytes Absolute Auto 2300 /uL (1100-4500); Lymphocytes Percent Auto 23.4 % (25-40); Mean Corpuscular HGB Conc 34.3 % (30-36); Mean Corpuscular Volume 84.5 fL (80-100); Monocytes Absolute Auto 700 /uL (0-900); Monocytes Percent Auto 7.4 % (3-14); Neutrophils Absolute Auto 6600 /uL (1500-7000); Neutrophils Percent Auto 67.6 % (50-75); Platelet Count 310 X10^3/uL (150-400); Red Blood Cell Count 4.09 X10^6/uL (4.0-5.2); Red Cell Distribution Width 14.3 % (11.6-14.8); White Blood Cell Count 9.8 X10^3/uL (4.5-11.0)
[2022-10-01 18:19] LABS: Alanine Aminotransferase 17 IU/L (<35); Albumin 4.2 g/dL (3.5-5.0); Albumin Globulin Ratio 1.2 (1.0-2.8); Alkaline Phosphatase 75 U/L (38-126); Aspartate Aminotransferase 20 IU/L (14-36); Bilirubin Total 0.1 mg/dL (0.2-1.3); Blood Urea Nitrogen 12 mg/dL (7-17); C-Reactive Protein Quant < 0.5 mg/dL (<1.0); Calcium 9.6 mg/dL (8.4-10.2); Carbon Dioxide 25 mmol/L (22-32); Chloride 103 mmol/L (98-107); Estimated Glomerular Filt Rate > 60 mL/min (>60); Globulin 3.4 g/dL (1.7-4.1); Glucose 89 mg/dL (70-100); HEMOLYSIS < 15 (0-50); Potassium 3.9 mmol/L (3.4-5.1); Sodium 138 mmol/L (137-145); Total Protein 7.6 g/dL (6.3-8.2)
[2022-10-01 18:33] LABS: Free T4, Direct Thyroxine 0.98 ng/dL (0.78-2.19)
[2022-10-01 18:38] LABS: Vitamin D 25 Hydroxy (D3) 45.3 ng/mL (30.0-100.0)
[2022-10-01 18:42] LABS: Rheumatoid Factor < 8.6 IU/mL (<12.0)
[2022-10-01 18:47] LABS: Thyroid Stimulating Hormone 0.635 uIU/mL (0.47-4.68)
[2022-10-01 19:06] LABS: Vitamin B12 676 pg/mL (239-931)
[2022-10-01 19:21] LABS: Erythrocyte Sedimentation Rate 8 MM/HR (0-20)
[2022-10-04 15:26] LABS: ANA Screen, IFA Negative (.)
== END ==
PROVIDERS: Family Provider Family Medicine; PCP Family Medicine; Referring Provider Family Medicine; Visit Provider Family Medicine
DX: Z13.88 Encounter for screening for disorder due to exposure to contaminants (principal); N83.291 Other ovarian cyst, right side; R10.2 Pelvic and perineal pain; R73.9 Hyperglycemia, unspecified; E55.9 Vitamin D deficiency, unspecified; F41.0 Panic disorder [episodic paroxysmal anxiety]; F41.1 Generalized anxiety disorder; N92.1 Excessive and frequent menstruation with irregular cycle; N20.0 Calculus of kidney
CPT/HCPCS: 36415; 80053; 82306; 82607; 84439; 84443; 84481; 85025; 85651; 86038; 86140; 86430

== ENCOUNTER → 2023-12-30 10:34 | Outpatient (CLI) | payer BC, SELFPAY ==
--- NOTE | 2023-12-30 10:37 | DI.RAD.S_ITS ---
PROCEDURE: XR LUMBAR SPINE 2-3V INDICATIONS: NECK PAIN TECHNIQUE: 3 views of the lumbar spine were acquired. COMPARISON: None. FINDINGS: Bones: 5 [id number] vertebrae are present. There is unremarkable bony alignment. No vertebral body compression fracture seen. Soft tissues: Overlying bowel gas pattern is unremarkable. No suspicious soft tissue calcifications. IMPRESSION: No acute bony abnormality. Dictated by: Jose Leal M.D. on 12/31/2023 at 7:49 Approved by: Jose Leal M.D. on 12/31/2023 at 7:50
--- NOTE | 2023-12-30 10:37 | DI.RAD.S_ITS ---
PROCEDURE: XR CERVICAL SPINE 2V OR 3V INDICATIONS: NECK PAIN TECHNIQUE: 3 view(s) of the cervical spine were acquired. COMPARISON: None. FINDINGS: Bones: No fractures or dislocations to the T1 level. The lateral masses of C1 appear intact on the odontoid view. No suspicious bony lesions. Soft tissues: No prevertebral soft tissue swelling. IMPRESSION: No displaced fracture or traumatic subluxation. Dictated by: Jose Leal M.D. on 12/31/2023 at 7:51 Approved by: Jose Leal M.D. on 12/31/2023 at 7:53
== END ==
PROVIDERS: Family Provider Family Medicine; PCP Family Medicine; Referring Provider Family Medicine; Visit Provider Family Medicine
DX: M54.2 Cervicalgia (principal); M54.50 Low back pain, unspecified; M25.551 Pain in right hip
CPT/HCPCS: 72040; 72100

== ENCOUNTER → 2024-06-25 09:10 | Outpatient (CLI) | payer BC, SELFPAY ==
--- NOTE | 2024-06-25 09:13 | DI.CT.S_ITS ---
PROCEDURE: CT IVP A/P W/WO INDICATIONS: ACUTE RT FLANK PAIN / NEPHROLITHIASIS TECHNIQUE: Optional 5 mm thick noncontrast images acquired from the diaphragm to the symphysis pubis. After the administration of intravenous contrast, 5 mm thick images acquired from the diaphragm to the symphysis pubis after a 10-minute delay. 2 mm thick coronal and sagittal reformats were then performed of the kidneys and ureters. For radiation dose reduction, the following was used: automated exposure control, adjustment of mA and/or kV according to patient size. COMPARISON: [facility], CT, CT KUB, 03/11/2018, 14:34. FINDINGS: Image quality: Diagnostic. Kidneys and Ureters: Both kidneys are normal in size, without hydronephrosis. Each kidney contains several punctate renal collecting system calculi, none of which are obstructive or associated with adjacent inflammation. No perinephric fat stranding. There is normal bilateral renal enhancement. Renal calyces appear normal in morphology when filled with contrast. Opacified portions of both ureters demonstrate normal caliber Bladder: Bladder wall thickness is normal. No calcified bladder stones. OTHER: Lower chest: Unremarkable. Liver: No solid mass. Gallbladder: No radiopaque gallstones or wall thickening. Biliary ducts: No biliary dilation. Pancreas: No ductal dilation. Spleen: Size is within normal limits. Adrenal Glands: No adrenal nodules. Stomach and Bowel: Normal colonic caliber, without significant wall thickening. Peritoneum: No abnormal intraperitoneal fluid. No free air. Ventral Wall: No hernia. Abdominal Nodes: No retroperitoneal or mesenteric adenopathy by size criteria. Vessels: Aorta and inferior vena cava are normal in size. PELVIS: Pelvic Organs: Unremarkable except for a dominant left ovarian cyst measuring 2.5 x 3.1 cm. Pelvic Nodes: No enlarged lymph nodes. Miscellaneous: No inguinal hernias are seen. Normal appendix found. Bones: No aggressive osseous abnormality. IMPRESSION: Several scattered punctate calculi within each renal collecting system, nonobstructive. No perinephric inflammation found. 2.5 x 3.1 cm dominant left ovarian cyst. No evidence of right ovarian cyst or cyst rupture. Normal appendix found right lower quadrant. Dictated by: Adrian Soriano M.D. on 06/25/2024 at 15:53 Approved by: Adrian Soriano M.D. on 06/25/2024 at 15:58
== END ==
LOC: CT 09:11
PROVIDERS: Family Provider Family Medicine; PCP Family Medicine; Referring Provider Family Medicine; Visit Provider Family Medicine
DX: N20.0 Calculus of kidney (principal); N83.202 Unspecified ovarian cyst, left side; R10.9 Unspecified abdominal pain
CPT/HCPCS: 74178; Q9967